=== PATIENT | male | born 1955 | race Caucasian/White ===

== ENCOUNTER 2017-05-09 11:33 | Emergency (ER) | payer BC ==
[~2017-05-09] VITALS: Ht 180.3 cm; Wt 86.2 kg
[~2017-05-09 11:33] MED LIST: PREDNICOT20 MG PO
[2017-05-09] MEDS ORDERED: NAPROSYN500 MG PO (11:59)
[2017-05-09] MEDS ORDERED: CHLORZOXAZONE500 M2 PO (11:59)
== END 2017-05-09 14:24 | disposition home or self-care (01) ==
LOC: ED 11:33
DX: M54.5 Low back pain (principal); R03.0 Elevated blood-pressure reading, without diagnosis of hypertension

== ENCOUNTER 2018-01-28 15:43 | Emergency (ER) | payer BC ==
[~2018-01-28] VITALS: Ht 180.3 cm; Wt 90.7 kg
[~2018-01-28 15:43] MED LIST changes: +CHLORZOXAZONE500 M2 PO; +NAPROSYN500 MG PO
[2018-01-28 17:45] LABS: BASO % 0.1 % (0.0-1.0); HEMATOCRIT 39.7 % (42.0-52.0); LYMPH # 0.6 10*3/uL (1.3-4.4); LYMPH % 7.2 % (27.0-41.0); MEAN CELL VOLUME 96.8 fl (80.0-94.0); MEAN CORPUSCULAR HGB 31.7 pg (27.0-31.0); MEAN CORPUSCULAR HGB CONC 32.7 g/dl (33.0-37.0); MEAN PLATELET VOLUME 9.7 fl (9.6-12.3); MONO # 0.6 10*3/uL (0.1-1.0); MONO % 7.1 % (3.0-9.0); NEUT # 7.3 10*3/uL (2.3-7.9); NEUT % 85.3 % (47.0-73.0); PLATELET COUNT AUTOMATED 283 10*3/uL (130-400); WHITE BLOOD COUNT 8.6 10*3/uL (4.8-10.8)
[2018-01-28 18:03] LABS: ALBUMIN 3.2 gm/dl (3.1-4.5); ALKALINE PHOSPHATASE 36 U/L (45-117); BUN 22 mg/dl (7-24); CHLORIDE 105 mmol/L (98-107); POTASSIUM 4.6 mmol/L (3.5-5.1); SGOT/AST 19 IU/L (3-35); SGPT/ALT 21 U/L (12-78); SODIUM 140 mmol/L (136-145)
== END 2018-01-28 21:45 | disposition short-term general hospital (02) ==
LOC: ED 15:43
PROVIDERS: Emergency Medicine
DX: S27.321A Contusion of lung, unilateral, initial encounter (principal); S22.41XA Multiple fractures of ribs, right side, initial encounter for closed fracture; J18.9 Pneumonia, unspecified organism; Z79.899 Other long term (current) drug therapy; Z79.1 Long term (current) use of non-steroidal anti-inflammatories (NSAID); W01.198A Fall on same level from slipping, tripping and stumbling with subsequent striking against other object, initial encounter; Y93.89 Activity, other specified; Y92.89 Other specified places as the place of occurrence of the external cause; Y99.8 Other external cause status